=== PATIENT | female | born 1980 | race Caucasian/White ===

== ENCOUNTER 2019-06-22 00:15 | Emergency (ER) | payer BC ==
[2019-06-22] MEDS ORDERED: Ciprofloxacin 500 MG Tab PO ONE (00:26)
--- NOTE | 2019-06-22 00:27 | EDM.PDOC ---
ED HPI GENERAL MEDICAL PROBLEM - General Stated Complaint: UTI Time Seen by Provider: 06/22/19 00:15 Source of Information: Reports: Patient, Family History Limitations: Reports: No Limitations - History of Present Illness INITIAL COMMENTS - FREE TEXT/NARRATIVE: 38 y.o.w.f came to te ed due to burning urination, Pt has a partial hysterectomy in the past. No N/V/D or any other acute med issues. BP 112/71 RR 17 Pulse ox 100% on RA Pulse 80 Temp 36.8 Onset Date: 06/20/19 Onset Time: 19:00 Duration: Day(s):, Getting Worse, Intermittent Location: Reports: Pelvis Quality: Reports: Burning, Dull Severity: Mild Improves with: Reports: None Worsens with: Reports: None Associated Symptoms: Reports: No Other Symptoms Pelvic Pain Score (Numeric/FACES): 7 - Related Data Allergies Allergy/AdvReac Type Severity Reaction Status Date / Time hydromorphone [From Dilaudid] Allergy Cardiac Verified 06/22/19 00:57 Arrest ketorolac [From Toradol] Allergy Renal Verified 06/22/19 00:57 Failure Penicillins Allergy Hives Verified 06/22/19 00:55 Home Meds: Home Meds Ciprofloxacin HCl [Cipro] 500 mg PO BID #20 tablet 06/22/19 [Rx] Phenazopyridine HCl [Pyridium] 100 mg PO TID #9 tablet 06/22/19 [Rx] ED ROS GENERAL - Review of Systems Review Of Systems: See Below () Constitutional: Reports: No Symptoms HEENT: Reports: No Symptoms Respiratory: Reports: No Symptoms Cardiovascular: Reports: No Symptoms Endocrine: Reports: No Symptoms GI/Abdominal: Reports: No Symptoms : Reports: Dysuria Musculoskeletal: Reports: No Symptoms Skin: Reports: No Symptoms Neurological: Reports: No Symptoms Psychiatric: Reports: No Symptoms Hematologic/Lymphatic: Reports: No Symptoms Immunologic: Reports: No Symptoms ED EXAM, GI/ABD - Physical Exam Exam: See Below Exam Limited By: No Limitations General Appearance: Alert, WD/WN, Mild Distress Eyes: Bilateral: Normal Appearance Ears: Normal External Exam Nose: Normal Inspection Throat/Mouth: Normal Inspection Head: Atraumatic, Normocephalic Neck: Normal Inspection, Supple, Non-Tender, Full Range of Motion Respiratory/Chest: No Respiratory Distress, Lungs Clear, Normal Breath Sounds, No Accessory Muscle Use, Chest Non-Tender Cardiovascular: Normal Peripheral Pulses GI/Abdominal Exam: Normal Bowel Sounds (Female) Exam: Deferred Rectal (Female) Exam: Deferred Back Exam: Normal Inspection, Full Range of Motion Extremities: Normal Inspection, Normal Range of Motion, Non-Tender, Normal Capillary Refill Neurological: Alert, Oriented, CN II-XII Intact, Normal Cognition, Abnormal Gait (deu to left ankle pain) Psychiatric: Normal Affect, Normal Mood Skin Exam: Warm, Dry, Intact, Normal Color, No Rash Lymphatic: No Adenopathy Course - Vital Signs Text/Narrative:: 38 y.o.w.f came to te ed due to burning urination, Pt has a partial hysterectomy in the past. No N/V/D or any other acute med issues. BP 112/71 RR 17 Pulse ox 100% on RA Pulse 80 Temp 36.8 PE: WNWD W F with dysuria Labs: UA pos for UTI Impression: UTI Tx: Cipro, Pyridium, Diflucan Reexam: Improved Plan: D/C with instructions Last Recorded V/S: Last Vital Signs Temp 36.4 C 06/22/19 00:31 Pulse 80 06/22/19 00:31 Resp 17 06/22/19 00:31 BP 112/71 06/22/19 00:31 Pulse Ox 100 06/22/19 00:31 - Orders/Labs/Meds Orders: Active Orders 24 hr Category Date Time Status CULTURE URINE [RM] Stat Lab 06/22/19 00:53 Ordered Labs: Laboratory Tests 06/22/19 06/22/19 Range/Units 00:20 00:20 Urine Color Yellow (YELLOW) Urine Appearance Cloudy (CLEAR) Urine pH 6.0 (5.0-6.5) Ur Specific [place] 1.020 (1.010-1.025) Urine Protein 100 H (NEGATIVE) mg/dL Urine Glucose (UA) Normal (NORMAL) mg/dL Urine Ketones Negative (NEGATIVE) mg/dL Urine Occult Blood Large H (NEGATIVE) Urine Nitrite Positive H (NEGATIVE) Urine Bilirubin Negative (NEGATIVE) Urine Urobilinogen 1 H (NEGATIVE) mg/dL Ur Leukocyte Esterase Large H (NEGATIVE) Urine RBC 30-40 H (0-5) Urine WBC 50-75 H (0-5) Ur Squamous Epith Cells Few H (NS,R,O) Urine Bacteria Many H (NS) Urine HCG, Qual Negative (NEGATIVE) Meds: Medications Discontinued Medications Generic Name Dose Route Start Last Admin Trade Name Elliot PRN Reason Stop Dose Admin Ciprofloxacin 500 mg 06/22/19 00:26 06/22/19 01:10 Ciprofloxacin Hcl PO 06/22/19 00:27 500 mg ONETIME ONE Administration Fluconazole 100 mg 06/22/19 01:05 06/22/19 01:21 Diflucan PO 06/22/19 01:06 100 mg ONETIME ONE Administration Phenazopyridine HCl 95 mg 06/22/19 09:00 Urinary Pain Relief PO TIDPC GABRIELA Phenazopyridine HCl 95 mg 06/22/19 01:01 06/22/19 01:10 Urinary Pain Relief PO 06/22/19 01:02 95 mg ONETIME STA Administration Departure - Departure Time of Disposition: 00:49 Disposition: Home, Self-Care 01 Condition: Good Clinical Impression: UTI (urinary tract infection) Qualifiers: Urinary tract infection type: acute cystitis Hematuria presence: with hematuria Qualified Code(s): N30.01 - Acute cystitis with hematuria - Discharge Information Prescriptions: Ciprofloxacin HCl [Cipro] 500 mg PO BID #20 tablet Phenazopyridine HCl [Pyridium] 100 mg PO TID #9 tablet Instructions: Urinary Tract Infection, Adult Referrals: PCP,None [Primary Care Provider] - Forms: ED Department Discharge Additional Instructions: Please increase water intake, please take Pyridium and Cipro as recommended, pending UCx results, please f/u, come back if your symptoms gt e worse acutely - My Orders Last 24 Hours: My Active Orders 06/22/19 00:53 CULTURE URINE [RM] Stat - Assessment/Plan Last 24 Hours: My Active Orders 06/22/19 00:53 CULTURE URINE [RM] Stat
[2019-06-22] MEDS ORDERED: Phenazopyridine 95 MG Tab PO STA (01:01)
[2019-06-22] MEDS ORDERED: Fluconazole 100 MG Tab PO ONE (01:05)
[2019-06-22] MEDS ORDERED: Phenazopyridine 95 MG Tab PO SCH (09:00)
[2019-06-25 20:07] LABS: CHLAMYDIA TRACHOMATIS, NAA Negative (Negative); NEISSERIA GONORRHOEAE, NAA Negative (Negative)
== END 2019-06-22 01:28 | disposition home or self-care (01) ==
LOC: FB.ED 00:15
DX: N30.01 Acute cystitis with hematuria (principal); Z90.711 Acquired absence of uterus with remaining cervical stump; Z88.0 Allergy status to penicillin; Z88.5 Allergy status to narcotic agent; Z88.8 Allergy status to other drugs, medicaments and biological substances; Z79.899 Other long term (current) drug therapy
CPT/HCPCS: 81001; 81025; 87086; 87088; 87491; 87591; 99283; A9270; 87186